=== PATIENT | male | born 1940 | race Caucasian/White ===

== ENCOUNTER 2019-07-22 06:38 | Day surgery (SDC) | payer MEDICARE ==
[~2019-07-22] VITALS: Ht 175.3 cm; Wt 90.1 kg
[2019-07-22 07:00] VITALS: BP 130/86
[2019-07-22] MEDS ORDERED: albumin 25% 100mL bottle x 1 IV PRN (07:10)
[2019-07-22] MEDS ORDERED: normal saline 1000ml 1,000 ML IV PRN (07:10)
[2019-07-22] MEDS ORDERED: SPIR25TA5 PO (07:13)
[2019-07-22] MEDS ORDERED: FOSI40TA5 PO (07:20)
[2019-07-22] MEDS ORDERED: ALLO300T2 PO (07:20)
[2019-07-22] MEDS ORDERED: CITA20TA19 PO (07:20)
[2019-07-22] MEDS ORDERED: ASCO500C17 PO (07:20)
[2019-07-22] MEDS ORDERED: TRAM50TA2 PO (07:20)
[2019-07-22] MEDS ORDERED: OMEP40CA13 PO (07:20)
[2019-07-22] MEDS ORDERED: FLUT16SP11 BOTHNARES (07:20)
[2019-07-22 10:07] LABS: GLUCOSE,BODY FLUID 118 MG/DL; LDH,BODY FLUID 61 U/L; TOTAL PROTEIN,BODY FLUID 2.8 G/DL
[2019-07-22 11:06] LABS: BF RBC COUNT 315 /CU MM; BF WBC COUNT 305 /CU MM (0-1000); BFAPPEAR CLEAR; BFCOLOR YELLOW; BFVOLUME 60 ML
[2019-07-22 11:35] LABS: NEUTROPHILS,BODY FLUID 52 %
[2019-07-22 11:36] LABS: LYMPHOCYTES,BODY FLUID 37 %; MONOCYTES,BODY FLUID 11 %
[2019-07-22 11:37] LABS: BF MESOTHELIAL CELLS MODERATE
== END 2019-07-22 10:45 | disposition home or self-care (01) ==
LOC: MED 3N 06:38 → U 06:38
PROVIDERS: ATTEND Radiology Vascular & Interventional Radiology
DX: R18.8 Other ascites (principal); M10.9 Gout, unspecified; F32.9 Major depressive disorder, single episode, unspecified; K21.9 Gastro-esophageal reflux disease without esophagitis; Z85.46 Personal history of malignant neoplasm of prostate; Z85.6 Personal history of leukemia; Z98.890 Other specified postprocedural states; Z79.899 Other long term (current) drug therapy; Z72.89 Other problems related to lifestyle
CPT/HCPCS: 36415; 49083; 82945; 83615; 84157; 87070; 89051; C1729

== ENCOUNTER 2019-09-30 07:12 | Day surgery (SDC) | payer MEDICARE ==
[~2019-09-30] VITALS: Ht 175.3 cm; Wt 84.1 kg
[~2019-09-30 07:12] MED LIST: ALLO300T2 PO; ASCO500C17 PO; CITA20TA19 PO; FLUT16SP11 BOTHNARES; FOSI40TA5 PO; OMEP40CA13 PO; SPIR25TA5 PO; TRAM50TA2 PO
[2019-09-30] MEDS ORDERED: normal saline 1000ml 1,000 ML IV PRN (07:35)
[2019-09-30] MEDS ORDERED: albumin 25% 100mL bottle x 1 IV PRN (07:35)
[2019-09-30 07:40] VITALS: BP 121/83
[2019-09-30 08:45] VITALS: BP 130/86
[2019-09-30 09:00] VITALS: BP 120/81
[2019-09-30 09:15] VITALS: BP 102/78
[2019-09-30 09:30] VITALS: BP 120/77
== END 2019-09-30 09:45 | disposition home or self-care (01) ==
LOC: SSTAY O 07:12
PROVIDERS: ATTEND Radiology Diagnostic Radiology
DX: R18.8 Other ascites (principal); F32.9 Major depressive disorder, single episode, unspecified; K21.9 Gastro-esophageal reflux disease without esophagitis; M10.9 Gout, unspecified; C61 Malignant neoplasm of prostate; C95.90 Leukemia, unspecified not having achieved remission; Z98.890 Other specified postprocedural states; Z79.899 Other long term (current) drug therapy
CPT/HCPCS: 49083; C1729